=== PATIENT | male | born 1970 | race Two or more races ===

== ENCOUNTER 2020-03-26 14:04 | Emergency (ER) | payer SELFPAY ==
[~2020-03-26] VITALS: Ht 165.1 cm; Wt 72.7 kg
--- NOTE | 2020-03-26 14:26 | PHYS DOC ---
General Adult EDM: Chief Complaint: HEADACHE HPI: HPI: Patient is a 49 year old male patient with no significant medical history who presents to the ED today complaining of 5 out of 10 posterior headache that began 3 days ago and has been going on constantly since then. Patient denies this headache being sudden onset. Patient denies anything specifically exacerbating or relieving the headache but he states he feels dizzy. He describes his dizziness as a sensation he is drunk but states he does not drink anything. Patient denies anything specifically exacerbating or relieving his symptoms. He states he did not try and take anything for his headache. Patient is [place]-speaking and interpretation was provided by a friend who brought to the ED with Review of Systems: Review of Systems: Constitutional: Denies fever or chills. [] Eyes: Denies change in visual acuity. [] HENT: Denies nasal congestion or sore throat. [] Respiratory: Denies cough or shortness of breath. [] Cardiovascular: Denies chest pain or edema. [] GI: Denies abdominal pain, nausea, vomiting, bloody stools or diarrhea. [] : Denies dysuria. [] Musculoskeletal: Denies back pain or joint pain. [] Integument: Denies rash. [] Neurologic: Reports headache with dizziness, denies focal weakness or sensory changes. [] Psychiatric: Denies depression or anxiety. [] Heart Score: Risk Factors: Risk Factors: DM, Current or recent (<one month) smoker, HTN, HLP, family history of CAD, obesity. Risk Scores: Score 0 - 3: 2.5% MACE over next 6 weeks - Discharge Home Score 4 - 6: 20.3% MACE over next 6 weeks - Admit for Clinical Observation Score 7 - 10: 72.7% MACE over next 6 weeks - Early Invasive Strategies Current Medications: Current Medications Medications (Trade) Dose Ordered Sig/Joselin Start Time Stop Time Status Last Admin Dose Admin Meclizine HCl (Antivert) 12.5 mg 1X ONCE 03/26/20 14:30 03/26/20 14:31 Methylprednisolone Sodium Succinate (SOLU-Medrol 125MG VIAL) 125 mg 1X ONCE 03/26/20 14:30 03/26/20 14:31 Sodium Chloride 1,000 ml @ 1,000 mls/hr 1X ONCE 03/26/20 14:30 03/26/20 15:29 Allergies: Allergies: Allergies Coded Allergies Type Severity Reaction Last Updated Verified No Known Drug Allergies 03/26/20 No Physical Exam: PE: Constitutional: Well developed, well nourished, no acute distress, non-toxic ap pearance. [] HENT: Normocephalic, atraumatic, bilateral external ears normal, oropharynx moist, no oral exudates, nose normal. [] Eyes: PERRLA, EOMI, conjunctiva normal, no discharge. [] Neck: Normal range of motion, no tenderness, supple, no stridor. [] Cardiovascular:Heart rate regular rhythm, no murmur [] Lungs & Thorax: Bilateral breath sounds clear to auscultation [] Abdomen: Bowel sounds normal, soft, no tenderness, no masses, no pulsatile masses. [] Skin: Warm, dry, no erythema, no rash. [] Back: No tenderness, no CVA tenderness. [] Extremities: No tenderness, no cyanosis, no clubbing, ROM intact, no edema. [] Neurologic: Alert and oriented X 3, normal motor function, normal sensory function, no focal deficits noted. Cranial nerves II through XII intact Psychologic: Affect normal, judgement normal, mood normal. [] EKG: EKG: [] Radiology/Procedures: Radiology/Procedures: []PROCEDURE: PORTABLE CHEST 1V EXAM: Chest, single view. HISTORY: Dizziness. Headache. COMPARISON: None. FINDINGS: A frontal view of the chest is obtained. There is no infiltrate, pleural effusion or pneumothorax. The heart is normal in size. IMPRESSION: No acute pulmonary finding. Electronically signed by: Myranda Mckeon MD (03/26/2020 2:57 PM) [id number] DICTATED and SIGNED BY: MYRANDA MCKEON MD DATE: 03/26/20 1457 PROCEDURE: CT HEAD WO CONTRAST EXAM: Head CT without contrast. HISTORY: Headache. TECHNIQUE: Computed tomographic images of the head were obtained without contrast. *One or more of the following individualized dose reduction techniques were utilized for this examination: 1. Automated exposure control. 2. Adjustment of the mA and/or kV according to patient size. 3. Use of iterative reconstruction technique. COMPARISON: None. FINDINGS: There is no acute or subacute extra-axial or intraparenchymal hemorrhage. There is no mass effect or midline shift. There is no hydrocephalus. The bhandari-white matter differentiation pattern is intact. There is ethmoid sinus mucosal thickening. The mastoid air cells are clear. There is incidental right trochlear apparatus calcification within the superior medial orbit, an incidental finding which can be seen with a history of diabetes. No calvarial lesion is seen. IMPRESSION: No acute intracranial findings. Electronically signed by: Myranda Mckeon MD (03/26/2020 2:53 PM) [id number] DICTATED and SIGNED BY: MYRANDA MCKEON MD DATE: 03/26/20 1453 Course & Med Decision Making: Course & Med Decision Making Pertinent Labs and Imaging studies reviewed. (See chart for details) This is a 49-year-old male patient presenting to the ED today with headache and dizziness for [address] of the head, chest x-ray interpreted by radiologist are negative for any acute findings, labs are normal. Blood pressure was noted high at around 140s over 90s. I highly suspect this is patient's source of headaches. He states he never sees a PCP and does not know if he has elevated BP. I recommended he gets a PCP and start following up. His headache has somewhat subsided in the ED after IV fluids and Solu-Medrol. He was discharged to home. Instructed to take Tylenol/ ibuprofen as needed for his pain. Follow-up with his own PCP in 1 to 2 weeks. Gin Disclaimer: Gin Disclaimer: This electronic medical record was generated, in whole or in part, using a voice recognition dictation system. Departure Departure Impression: Primary Impression: Headache Qualified Codes: R51 - Headache Additional Impressions: High blood pressure Qualified Codes: I10 - Essential (primary) hypertension Dizziness Disposition: HOME, SELF-CARE Condition: STABLE Patient Instructions: General Headache Without Cause, Hypertension Additional Instructions: You were evaluated in the emergency room for headache, your blood pressures running high in the 140s over 90s. Normal blood pressure should be less than 120/80. Please establish care with a primary care doctor, this could be the source of your headaches. Take Tylenol Motrin as needed for pain. Come back to the ED at any point symptoms worsen. Scripts Meclizine Hcl (MECLIZINE HCL) 12.5 Mg Tablet 1 TAB PO TID, #30 TAB 0 Refills Prov: TOBIAS PENDLETON [employer] 03/26/20 Justicifation of Admission Dx: Justifications for Admission: Justification of Admission Dx: N/A TOBIAS PENDLETON APRN Mar 26, 2020 14:26
[2020-03-26 14:28] LABS: BASO % 1 % (0-3); EOS # 0.2 x10^3/uL (0.0-0.7); EOS % 3 % (0-3); HEMATOCRIT 44.7 % (39.0-53.0); HEMOGLOBIN 15.7 g/dL (13.0-17.5); LYMPH # 1.8 x10^3/uL (1.0-4.8); LYMPH % 27 % (24-48); MEAN CORPUSCULAR HEMOGLOBIN 33 pg (25-35); MEAN CORPUSCULAR HGB CONC 35 g/dL (31-37); MEAN CORPUSCULAR VOLUME 93 fL (79-100); MONO # 0.5 x10^3/uL (0.0-1.1); MONO % 7 % (0-9); NEUT % 62 % (31-73); PLATELET COUNT 200 x10^3/uL (140-400); RED BLOOD COUNT 4.81 x10^6/uL (4.30-5.70); RED CELL DISTRIBUTION WIDTH 12.6 % (11.5-14.5); WHITE BLOOD COUNT 6.4 x10^3/uL (4.0-11.0)
[2020-03-26] MEDS ORDERED: IV NORMAL SALINE 1000ML BAG 1,000 ML IV ONE (14:30)
[2020-03-26] MEDS ORDERED: MECLIZINE HCL 12.5 MG TABLET. PO ONE (14:30)
[2020-03-26] MEDS ORDERED: methylPREDNISolone SOD SUCC PF 125 MG/2 ML VIAL. IV ONE (14:30)
[2020-03-26 14:32] LABS: BILIRUBIN,URINE NEGATIVE (NEG); CLARITY,URINE CLEAR; COLOR,URINE YELLOW; NITRITE,URINE NEGATIVE (NEG); PROTEIN,URINE NEGATIVE (NEG-TRACE); UROBILINOGEN,URINE 0.2 mg/dL (0.2 mg/dL)
[2020-03-26 14:37] LABS: BARBITURATES NEG (NEG); BENZODIAZEPINES NEG (NEG); CANNABINOIDS NEG (NEG); COCAINE NEG (NEG); METHADONE NEG (NEG); OPIATES NEG (NEG); PHENCYCLIDINE NEG (NEG)
[2020-03-26 14:38] LABS: AMPHETAMINE/METHAMPHETAMINE NEG (NEG)
[2020-03-26 14:40] LABS: PROTHROMBIN TIME PATIENT 12.4 SEC (11.7-14.0)
[2020-03-26 14:41] LABS: HYALINE CASTS, URINE FEW /HPF; SQUAMOUS EPITHELIAL CELL,UR FEW /LPF
[2020-03-26 14:42] LABS: BACTERIA,URINE 0 /HPF (0-FEW); RBC,URINE 0 /HPF (0-2); WBC,URINE 0 /HPF (0-4)
[2020-03-26 14:53] LABS: CALCIUM 8.7 mg/dL (8.5-10.1); GFR 78.8
--- NOTE | 2020-03-26 14:56 | RAD ---
EXAM: Head CT without contrast. HISTORY: Headache. TECHNIQUE: Computed tomographic images of the head were obtained without contrast. *One or more of the following individualized dose reduction techniques were utilized for this examination: 1. Automated exposure control. 2. Adjustment of the mA and/or kV according to patient size. 3. Use of iterative reconstruction technique. COMPARISON: None. FINDINGS: There is no acute or subacute extra-axial or intraparenchymal hemorrhage. There is no mass effect or midline shift. There is no hydrocephalus. The bhandari-white matter differentiation pattern is intact. There is ethmoid sinus mucosal thickening. The mastoid air cells are clear. There is incidental right trochlear apparatus calcification within the superior medial orbit, an incidental finding which can be seen with a history of diabetes. No calvarial lesion is seen. IMPRESSION: No acute intracranial findings. Electronically signed by: Myranda Mckeon MD (03/26/2020 2:53 PM) [id number]
[2020-03-26 14:58] LABS: ALBUMIN 3.7 g/dL (3.4-5.0); ALBUMIN/GLOBULIN RATIO 1.2 (1.0-1.7); MAGNESIUM 1.9 mg/dL (1.8-2.4); TOTAL BILIRUBIN 0.7 mg/dL (0.2-1.0); TOTAL PROTEIN 6.9 g/dL (6.4-8.2)
--- NOTE | 2020-03-26 15:00 | RAD ---
EXAM: Chest, single view. HISTORY: Dizziness. Headache. COMPARISON: None. FINDINGS: A frontal view of the chest is obtained. There is no infiltrate, pleural effusion or pneumothorax. The heart is normal in size. IMPRESSION: No acute pulmonary finding. Electronically signed by: Myranda Mckeon MD (03/26/2020 2:57 PM) [id number]
[2020-03-26 16:10] VITALS: BP 121/78
[2020-03-26] MEDS ORDERED: MECL12.573 PO (16:13)
--- NOTE | 2020-03-28 09:05 | EKG ---
[facility] [address] [place] [id number] Test Date: 2020-03-26 Test Time: 14:28:55 Pat Name: CARI VALLES Department: Room: Gender: M Customer Support Technician: : 1970 Requested By: TOBIAS PENDLETON Order Number: [id number] Reading MD: Steve Mckenzie MD Measurements Intervals [place] Rate: 69 P: 31 PA: 152 QRS: 51 QRSD: 88 T: 54 QT: 400 QTc: 430 Interpretive Statements SINUS RHYTHM Electronically Signed On 03-28-2020 14:00:56 CDT by Steve Mckenzie MD
== END 2020-03-26 16:30 | disposition home or self-care (01) ==
LOC: ER 14:04
DX: R51 Headache (principal); I10 Essential (primary) hypertension; R42 Dizziness and giddiness
CPT/HCPCS: 36415; 70450; 71045; 80053; 80307; 81001; 83690; 83735; 83880; 84484; 85025; 85610; 93005; 96361; 96374; 99285; J2930; J7030; J8597